=== PATIENT | female | born 1945 | race Caucasian/White ===

== ENCOUNTER 2020-06-24 19:38 | Emergency (ER) | payer MEDICARE, OTHER ==
[~2020-06-24 19:38] MED LIST: ALPRAZOLAM 1MG T1 MG PO; AMITIZA24 MCG PO; ASPIRIN EC81 MG PO; BACLOFEN 10MG T10 MG PO; CLEOCIN300 MG PO; CLONIDINE 0.2M0.2 MG PO; DITROPAN5 MG PO; DOXYCYCLINE MO100 MG PO; ELIQUIS5 MG PO; HYDRALAZINE 50M50 MG PO; LIPITOR40 MG PO; LISINOPRIL-HCT1 EAC1 PO; METFORMIN HCL500 M2 PO; MORPHINE SULFAT30 M1 PO; MS CONTIN15 MG PO; NEURONTIN300 M1 PO; NORCO 5-325 TA1 EACH PO; OXYBUTYNIN CHLOR5 M1 PO; PANTOPRAZOLE SO40 MG PO; PREDNISONE 20MG20 MG PO; PROZAC20 M1 PO; VIBRAMYCIN100 MG PO
[2020-06-24 21:34] LABS: BASOPHIL 0.3 % (0-2); EOSINOPHIL 1.3 % (0-7); HCT 36.8 % (37.0-47.0); HGB 11.2 g/dl (12.5-16.0); LYMPHOCYTE 25.8 % (15-48); MCH 28.4 pg (25.0-31.0); MCHC 30.4 g/dL (32.0-36.0); MCV 93.2 fL (78.0-100.0); MONOCYTE 11.3 % (0-12); MPV 10.9 fL (6.0-9.5); NEUTROPHIL 61.1 % (41-80); NRBC 0; PLT 132 K/uL (150-400); RBC 3.95 M/uL (4.20-5.40); RDW 14.3 % (11.5-14.0); WBC 6.4 K/uL (4.0-10.5)
[2020-06-24 21:45] LABS: ALBUMIN 3.1 g/dL (3.4-5.0); BILIRUBIN - TOTAL 0.3 mg/dL (0.2-1.0); BUN/CREAT RATIO (CALC) 18.5 RATIO; CREATININE 1.24 mg/dL (0.51-0.95); GLOBULIN (CALCULATION) 2.5 g/dL; POTASSIUM 3.4 mmol/L (3.5-5.1); TOTAL PROTEIN 5.6 g/dL (6.4-8.2)
[2020-06-24 22:22] LABS: BILIRUBIN NEGATIVE (NEGATIVE); BLOOD NEGATIVE Ery/uL (NEGATIVE); COLOR YELLOW (YELLOW); GLUCOSE (U) NORMAL (NORMAL); LEUKOCYTES TRACE Leu/uL (NEGATIVE); NITRITE NEGATIVE (NEGATIVE); PROTEIN NEGATIVE (NEGATIVE); UROBILINOGEN 0.2 mg/dL (0.2-1.0); pH 5.5 (5.0-9.0)
[2020-06-24 22:25] LABS: ECSTASY (MDMA) NEGATIVE (NEGATIVE); MARIJUANA (THC) NEGATIVE (NEGATIVE); METHADONE NEGATIVE (NEGATIVE); OPIATES POSITIVE (NEGATIVE)
[2020-06-24 22:26] LABS: AMPHETAMINES NEGATIVE (NEGATIVE); BARBITURATES NEGATIVE (NEGATIVE); CLARITY SLIGHTLY HAZY (CLEAR); OXYCODONE NEGATIVE (NEGATIVE)
[2020-06-24 22:30] LABS: BACTERIA TRACE; MUCOUS TRACE; RENAL EPITHELIAL CELLS RARE; URINARY RBC RARE
[2020-06-25] MEDS ORDERED: KEFLEX250 MG PO (01:21)
== END 2020-06-25 03:04 | disposition home or self-care (01) ==
LOC: FER 19:38
PROVIDERS: Emergency Medicine
DX: S33.5XXA Sprain of ligaments of lumbar spine, initial encounter (principal); G89.29 Other chronic pain; N39.0 Urinary tract infection, site not specified; S40.022A Contusion of left upper arm, initial encounter; S80.812A Abrasion, left lower leg, initial encounter; R60.0 Localized edema; M54.2 Cervicalgia; I10 Essential (primary) hypertension; I48.91 Unspecified atrial fibrillation; Z95.0 Presence of cardiac pacemaker; Z88.0 Allergy status to penicillin; Z88.6 Allergy status to analgesic agent; Z86.711 Personal history of pulmonary embolism; W19.XXXA Unspecified fall, initial encounter; Y92.009 Unspecified place in unspecified non-institutional (private) residence as the place of occurrence of the external cause; Z79.899 Other long term (current) drug therapy; Z79.01 Long term (current) use of anticoagulants; Z79.84 Long term (current) use of oral hypoglycemic drugs; Z79.82 Long term (current) use of aspirin; Z79.891 Long term (current) use of opiate analgesic
CPT/HCPCS: 36415; 70450; 72125; 72131; 73590; 80053; 80305; 81001; 84484; 85025; 87088; 93005; J1642

== ENCOUNTER 2020-10-24 12:48 | Emergency (ER) | payer MEDICARE, OTHER ==
[~2020-10-24 12:48] MED LIST changes: +KEFLEX250 MG PO
== END 2020-10-24 13:41 | disposition home or self-care (01) ==
LOC: FER 12:48
DX: K06.8 Other specified disorders of gingiva and edentulous alveolar ridge (principal); I10 Essential (primary) hypertension; J44.9 Chronic obstructive pulmonary disease, unspecified; Z88.0 Allergy status to penicillin